=== PATIENT | female | born 1945 | race Caucasian/White ===

== ENCOUNTER 2019-07-04 07:55 | Outpatient (CLI) | payer MEDICARE, BC, SELFPAY ==
--- NOTE | 2019-07-04 08:15 | PC.NURSE ---
Patient here for port flush. Port site to left upper chest cleansed well. Accessed with riley needle, patient tolerated well. Port site flushed well. No blood return received. Patient states that has bee an issues in the past. Site flushed with 10ml of normal saline and 500 Unit Heparin Lock Flush. Port site deaccessed, patient tolerated well. Band aid applied to site. Next appointment made for August 04, 2019 at 0800. Patient denies any questions at discharge, left ambulatory.
== END 2019-07-04 07:56 | disposition home or self-care (01) ==
LOC: CHSTREATRM 07:59
PROVIDERS: PCP Family Medicine
DX: C73 Malignant neoplasm of thyroid gland (principal)
CPT/HCPCS: 96523

== ENCOUNTER 2019-07-12 09:25 | Outpatient (CLI) | payer MEDICARE, SELFPAY ==
[2019-07-12 09:39] LABS: Basophils Absolute Auto 0.06 K/mm3 (0.00-0.10); Basophils Percent Auto 1.2 % (0.0-1.0); Hematocrit 33.4 % (35.0-42.0); Immature Granulocyte Absolute 0.02 K/mm3 (0.00-0.00); Immature Granulocyte Percent A 0.4 % (0.0-0.0); Lymphocytes Absolute Auto 1.45 K/mm3 (1.10-4.50); Lymphocytes Percent Auto 29.2 % (18.0-42.0); Mean Corpuscular HGB Conc 32.9 g/dL (32.0-36.0); Mean Corpuscular Volume 97.1 fL (78.0-102.0); Monocytes Percent Auto 10.1 % (2.0-11.0); Neutrophils Absolute Auto 2.8 K/mm3 (1.7-7.2); Neutrophils Percent Auto 57.1 % (50.0-70.0); Platelet Count Result 197 K/mm3 (150-420); Red Blood Count 3.44 M/mm3 (4.20-5.40); Red Cell Distribution Width 12.7 % (11.6-14.4)
== END 2019-07-12 09:26 | disposition home or self-care (01) ==
PROVIDERS: Visit Provider Family Medicine
DX: R53.83 Other fatigue (principal)
CPT/HCPCS: 36415; 85025

== ENCOUNTER 2019-08-05 08:16 | Outpatient (CLI) | payer MEDICARE, SELFPAY ==
[2019-08-05 10:19] LABS: Albumin Level 3.5 g/dL (3.4-5.0); Anion Gap 13.1 mmol/L (7-16); Blood Urea Nitrogen 14 mg/dL (7-18); Calcium 9.2 mg/dL (8.5-10.1); Carbon Dioxide 29 mmol/L (21-32); Chloride 105 mmol/L (98-108); Estimated Glomerular Filt Rate 49; Glucose 78 mg/dL (70-99); Osmolality Calculated 295 mOsm/kg (285-295); Phosphorus 4.2 mg/dL (2.6-4.7); Potassium 4.1 mmol/L (3.5-5.1); Sodium 143 mmol/L (136-145)
== END 2019-08-05 08:17 | disposition home or self-care (01) ==
LOC: CHSLAB 08:20
PROVIDERS: PCP Obstetrics & Gynecology
DX: M81.0 Age-related osteoporosis without current pathological fracture (principal)
CPT/HCPCS: 36415; 80069

== ENCOUNTER 2019-10-01 08:05 | Outpatient (CLI) | payer MEDICARE, BC, SELFPAY ==
--- NOTE | 2019-10-01 08:50 | PC.NURSE ---
Port accessed left subclavian, Port flushed easily with 10ml NS, 10ml blood with drawn for waste, Labs obtained. Port flushed with 10ml NS and 5ml Heparin lock flush 500 HALFWAY units/5ml.
[2019-10-01 08:58] LABS: Basophils Absolute Auto 0.06 K/mm3 (0.00-0.10); Basophils Percent Auto 1.1 % (0.0-1.0); Eosinophils Absolute Auto 0.11 K/mm3 (0.02-0.50); Hematocrit 31.2 % (35.0-42.0); Hemoglobin 10.3 g/dL (11.7-13.8); Immature Granulocyte Absolute 0.02 K/mm3 (0.00-0.00); Immature Granulocyte Percent A 0.4 % (0.0-0.0); Lymphocytes Absolute Auto 1.49 K/mm3 (1.10-4.50); Lymphocytes Percent Auto 26.6 % (18.0-42.0); Mean Corpuscular Hemoglobin 31.8 pg (27.0-31.0); Mean Corpuscular Volume 96.3 fL (78.0-102.0); Mean Platelet Volume 8.4 fl (9.2-11.8); Monocytes Absolute Auto 0.53 K/mm3 (0.10-0.90); Monocytes Percent Auto 9.4 % (2.0-11.0); Neutrophils Absolute Auto 3.4 K/mm3 (1.7-7.2); Neutrophils Percent Auto 60.5 % (50.0-70.0); Platelet Count Result 219 K/mm3 (150-420); Red Blood Count 3.24 M/mm3 (4.20-5.40); Red Cell Distribution Width 12.5 % (11.6-14.4); White Blood Count 5.6 K/mm3 (4.8-10.8)
[2019-10-01 09:59] LABS: Alanine Aminotransferase 14 U/L (14-59); Albumin Level 3.2 g/dL (3.4-5.0); Alkaline Phosphatase 67 U/L (46-116); Anion Gap 12.9 mmol/L (7-16); Aspartate Amino Transferase 17 U/L (15-37); Bilirubin,Total 0.3 mg/dL (0.00-1.00); Blood Urea Nitrogen 13 mg/dL (7-18); Calcium 8.8 mg/dL (8.5-10.1); Carbon Dioxide 29 mmol/L (21-32); Chloride 104 mmol/L (98-108); Estimated Glomerular Filt Rate 49; Free T4 Free Thyroxine 1.56 ng/dL (0.76-1.46); Glucose 80 mg/dL (70-99); Osmolality Calculated 293 mOsm/kg (285-295); Potassium 3.9 mmol/L (3.5-5.1); Sodium 142 mmol/L (136-145); Thyroid Stimulating Hormone 0.13 uIU/mL (0.36-3.74); Total Protein 6.5 g/dL (6.4-8.2)
[2019-10-04 04:50] LABS: Thyroglobulin 6.3 ng/mL (2.8-40.9); Thyroglobulin Antibodies <1 IU/mL (<=1)
== END 2019-10-01 08:06 | disposition home or self-care (01) ==
PROVIDERS: PCP Family Medicine
DX: C73 Malignant neoplasm of thyroid gland (principal)
CPT/HCPCS: 36415; 80053; 84100; 84432; 84439; 84443; 85025; 86800; 96372

== ENCOUNTER 2019-10-13 10:10 | Outpatient (CLI) | payer MEDICARE, BC, SELFPAY | END 2019-10-13 10:11 | disposition home or self-care (01) | PROVIDERS: Visit Provider Dentist | DX: Z01.818 Encounter for other preprocedural examination (principal); Z11.59 Encounter for screening for other viral diseases | CPT/HCPCS: 87635; 93005; C9803; U0003 ==

== ENCOUNTER 2019-10-13 11:24 | Outpatient (CLI) | payer MEDICARE, BC, SELFPAY ==
--- NOTE | 2019-10-13 11:45 | ECG_ITS ---
Measurements Intervals [place] Rate: 65 P: 34 AK: 166 QRS: -52 QRSD: 93 T: 53 QT: 415 QTc: 433 Interpretive Statements SINUS RHYTHM LEFT ANTERIOR FASCICULAR BLOCK VOLTAGE CRITERIA FOR LVH ABNORMAL ECG Electronically Signed On 10-13-2019 11:55:54 CDT by Horace Dominique D.O.
== END 2019-10-13 11:25 | disposition home or self-care (01) ==
LOC: ANHCARD 11:27
PROVIDERS: Visit Provider Anesthesiology
DX: Z01.810 Encounter for preprocedural cardiovascular examination (principal); I10 Essential (primary) hypertension; R94.31 Abnormal electrocardiogram [ECG] [EKG]
CPT/HCPCS: 93005

== ENCOUNTER 2019-10-29 10:22 | Outpatient (CLI) | payer MEDICARE, SELFPAY ==
[2019-10-29 10:40] LABS: Basophils Absolute Auto 0.04 K/mm3 (0.00-0.10); Basophils Percent Auto 0.7 % (0.0-1.0); Eosinophils Absolute Auto 0.13 K/mm3 (0.02-0.50); Eosinophils Percent Auto 2.2 % (1.0-6.0); Hematocrit 30.9 % (35.0-42.0); Hemoglobin 10.5 g/dL (11.7-13.8); Immature Granulocyte Absolute 0.03 K/mm3 (0.00-0.00); Immature Granulocyte Percent A 0.5 % (0.0-0.0); Lymphocytes Absolute Auto 1.44 K/mm3 (1.10-4.50); Lymphocytes Percent Auto 24.4 % (18.0-42.0); Mean Corpuscular Hemoglobin 32.4 pg (27.0-31.0); Mean Corpuscular Volume 95.4 fL (78.0-102.0); Mean Platelet Volume 8.3 fl (9.2-11.8); Monocytes Absolute Auto 0.47 K/mm3 (0.10-0.90); Neutrophils Absolute Auto 3.8 K/mm3 (1.7-7.2); Neutrophils Percent Auto 64.2 % (50.0-70.0); Platelet Count Result 199 K/mm3 (150-420); Red Blood Count 3.24 M/mm3 (4.20-5.40); Red Cell Distribution Width 12.2 % (11.6-14.4); White Blood Count 5.9 K/mm3 (4.8-10.8)
[2019-10-29 11:47] LABS: Alanine Aminotransferase 15 U/L (14-59); Albumin Level 3.4 g/dL (3.4-5.0); Alkaline Phosphatase 59 U/L (46-116); Anion Gap 11.7 mmol/L (7-16); Aspartate Amino Transferase 14 U/L (15-37); Bilirubin,Total 0.3 mg/dL (0.00-1.00); Blood Urea Nitrogen 14 mg/dL (7-18); Carbon Dioxide 31 mmol/L (21-32); Chloride 102 mmol/L (98-108); Estimated Glomerular Filt Rate 34; Free T4 Free Thyroxine 1.62 ng/dL (0.76-1.46); Glucose 100 mg/dL (70-99); Osmolality Calculated 292 mOsm/kg (285-295); Phosphorus 3.6 mg/dL (2.6-4.7); Potassium 3.7 mmol/L (3.5-5.1); Sodium 141 mmol/L (136-145); Thyroid Stimulating Hormone 0.11 uIU/mL (0.36-3.74)
[2019-11-01 03:48] LABS: Thyroglobulin 8.3 ng/mL (2.8-40.9); Thyroglobulin Antibodies <1 IU/mL (<=1)
== END 2019-10-29 10:23 | disposition home or self-care (01) ==
DX: C73 Malignant neoplasm of thyroid gland (principal); E89.0 Postprocedural hypothyroidism; E83.51 Hypocalcemia
CPT/HCPCS: 36415; 80053; 84100; 84432; 84439; 84443; 85025; 86800

== ENCOUNTER 2019-11-12 00:26 | Outpatient (CLI) | payer MEDICARE, BC, SELFPAY ==
[2019-11-13 12:36] LABS: SARS-CoV-2 RNA PCR Negative
== END 2019-11-12 00:27 | disposition home or self-care (01) ==
LOC: ANHCOVIDDT 00:26
PROVIDERS: Visit Provider Dentist
DX: Z20.828 Contact with and (suspected) exposure to other viral communicable diseases (principal); Z01.812 Encounter for preprocedural laboratory examination
CPT/HCPCS: 87635; C9803; U0003

== ENCOUNTER 2019-11-17 00:13 | Outpatient (CLI) | payer MEDICARE, BC, SELFPAY ==
[2019-11-17 17:13] LABS: SARS-CoV-2 RNA PCR Negative
== END 2019-11-17 00:14 | disposition home or self-care (01) ==
LOC: ANHCOVIDDT 00:13
PROVIDERS: Visit Provider Dentist
DX: Z01.812 Encounter for preprocedural laboratory examination (principal); Z11.59 Encounter for screening for other viral diseases
CPT/HCPCS: 87635; C9803; U0003

== ENCOUNTER 2019-11-19 01:41 | Day surgery (SDC) | payer MEDICARE, BC, SELFPAY ==
[2019-10-08 15:50] VITALS: BMI 21.9
--- NOTE | 2019-11-07 13:48 | PC.NURSE ---
PT.STATES NO CHANGE IN HEALTH HX OR MEDICATIONS
--- NOTE | 2019-11-07 13:54 | PC.NURSE ---
PT.STATES NO CHANGE IN HISTORY
[2019-11-14 12:00] VITALS: BMI 21.9
[2019-11-19] VITALS (9 sets, daily range): BP systolic 142–167; BP diastolic 69–92; PULSE 65–83; RESP 16–19; TEMP 36.2–36.4; O2SAT 95–100; BMI 23.5
--- NOTE | 2019-11-19 07:24 | PM.IMHP ---
H&P: HPI History of Present Illness Chief complaint: Dental Carries/ Exostosis Narrative: Promise Medeiros is a 74 year old female nonrestorable dentition and donavon PMFSH Past Medical History Medical History (Updated 11/19/19 @ 07:24 by Trey Calvillo, GERALD) Anemia CVA (cerebral vascular accident) mild - 2017 - no residual Depression Glaucoma History of thyroid cancer Hyperlipidemia Hypertension Surgical History Surgical History (Updated 11/12/19 @ 12:45 by Clemente Barnes, ) History of thyroidectomy Meds Home Medications and Allergies Home Medications Medication Instructions Recorded Confirmed Type Vitamin D2 50,000 unit WEEKLY 10/08/19 11/14/19 History aspirin [Aspir-81] 81 mg PO DAILY 10/08/19 11/14/19 History atorvastatin 10 mg PO HS 10/08/19 11/14/19 History buspirone 5 mg PO BID 10/08/19 11/14/19 History calcitriol 0.25 mcg PO DAILY 10/08/19 11/14/19 History calcium citrate-vitamin D3 2 tablet PO HS 10/08/19 11/14/19 History [Citracal Regular] cyanocobalamin (vitamin B-12) 1,000 mcg PO DAILY 10/08/19 11/14/19 History dorzolamide-timolol 1 drp OPHTHALMIC (EYE) BID 10/08/19 11/14/19 History escitalopram oxalate 10 mg PO HS 10/08/19 11/14/19 History escitalopram oxalate 20 mg PO DAILY 10/08/19 11/14/19 History ferrous sulfate [iron] 325 mg PO DAILY 10/08/19 11/14/19 History levothyroxine [Synthroid] 100 mcg PO DAILY 10/08/19 11/14/19 History oxybutynin chloride 10 mg PO DAILY 10/08/19 11/14/19 History risperidone 1.5 mg PO BID 10/08/19 11/14/19 History travoprost [Travatan Z] 1 drp OPHTHALMIC (EYE) QPM 10/08/19 11/14/19 History Allergies Allergy/AdvReac Type Severity Reaction Status Date / Time morphine AdvReac Difficulty Verified 11/14/19 11:59 Breathing Assessment and Plan Assessment and plan (1) Non-restorable tooth: Code(s): K08.89 - Other specified disorders of teeth and supporting structures Status: Acute Assessment and Plan: Mckenzie raphael
--- NOTE | 2019-11-19 07:42 | SUR.PREOP ---
9614; DR LOUIS NOTIFIED THAT PT IS GOING TO BE LATE. PT WAS CALLED
--- NOTE | 2019-11-19 07:56 | WPDANESEPPF ---
Anes - Initial Pre Proc Eval Procedure: Operation Date: 11/19/19 08:30 Proposed Procedures p Extraction Of Fourteen Teeth, Removal Bilateral Mandibular Ayah - Trey Calvillo DMD Date/Time: 11/19/19 07:56 Surgeon: Trey Calvillo DMD Pre Op Diagnosis: Dental Carries/ Exostosis Patient Data Age: 74 Gender: F Height: 1.57 m Weight: 54.5 kg Allergies Allergy/AdvReac Type Severity Reaction Status Date / Time morphine AdvReac Difficulty Verified 11/14/19 11:59 Breathing Home Medications Medication Instructions Recorded Confirmed Type Vitamin D2 50,000 unit WEEKLY 10/08/19 11/14/19 History aspirin [Aspir-81] 81 mg PO DAILY 10/08/19 11/14/19 History atorvastatin 10 mg PO HS 10/08/19 11/14/19 History buspirone 5 mg PO BID 10/08/19 11/14/19 History calcitriol 0.25 mcg PO DAILY 10/08/19 11/14/19 History calcium citrate-vitamin D3 2 tablet PO HS 10/08/19 11/14/19 History [Citracal Regular] cyanocobalamin (vitamin B-12) 1,000 mcg PO DAILY 10/08/19 11/14/19 History dorzolamide-timolol 1 drp OPHTHALMIC (EYE) BID 10/08/19 11/14/19 History escitalopram oxalate 10 mg PO HS 10/08/19 11/14/19 History escitalopram oxalate 20 mg PO DAILY 10/08/19 11/14/19 History ferrous sulfate [iron] 325 mg PO DAILY 10/08/19 11/14/19 History levothyroxine [Synthroid] 100 mcg PO DAILY 10/08/19 11/14/19 History oxybutynin chloride 10 mg PO DAILY 10/08/19 11/14/19 History risperidone 1.5 mg PO BID 10/08/19 11/14/19 History travoprost [Travatan Z] 1 drp OPHTHALMIC (EYE) QPM 10/08/19 11/14/19 History ECG: Date of Service: 10/13/19 Procedure(s): CA 12 lead EKG Accession Number(s): [id number] cc: ~ Measurements Intervals [place] Rate: 65 P: 34 DE: 166 QRS: -52 QRSD: 93 T: 53 QT: 415 QTc: 433 Interpretive Statements SINUS RHYTHM LEFT ANTERIOR FASCICULAR BLOCK VOLTAGE CRITERIA FOR LVH ABNORMAL ECG Electronically Signed On 10-13-2019 11:55:54 CDT by Horace Dominique D.O. Dictated By: Horace Dominique DO 10/13/19 1152 Patient hx anesthesia problems: none Family hx anesthesia problems: none PMFSH Past Medical History Medical History (Updated 11/19/19 @ 07:58 by Romero Nolasco MD) Anemia CVA (cerebral vascular accident) mild - 2017 - no residual Depression Glaucoma History of thyroid cancer Hyperlipidemia Hypertension Hypothyroidism Surgical History Surgical History (Updated 11/12/19 @ 12:45 by Clemente Barnes DO) History of thyroidectomy Anes - Eval Final PreProcedure Day of Procedure 11/19/19 07:56 Patient weight: normal Heart: regular rate and rhythm Lungs: clear to auscultation and normal air movement Airway: Mallampati scale class II Neurological: alert and oriented Last oral intake: >/= 8 hours ASA classification: III Emergent: no Anesthetic plan: proceed Anesthesia type and monitoring: general ETT Informed Consent: The patient's anesthetic plan and its attendant risks and benefits were discussed with the patient/family/POA. Questions were solicited and answers provided to the satisfaction of the patient/family/POA.
--- NOTE | 2019-11-19 08:42 | SUR.PREOP ---
0830; UNABLE TO START SUCCESSFUL IV. BRIANA THE EMAIL OPERATIONS MANAGER STUDENT ATTEMPTED ALSO. DR JOLLEY NOTIFIED. HE WILL ATTEMPT AN IV. OK TO ACCESS PORTACATH.
[2019-11-19] MEDS: LACTATED RINGERS 1,000 ML 30 ML IV CONT (09:07)
--- NOTE | 2019-11-19 09:09 | SUR.PREOP ---
MESSAGE LEFT FOR SONJEISON, THAT PT WENT TO OR AT 0905
[2019-11-19] MEDS: LIDOCAINE 2%-EPI (FOR DENTAL BLOCK) 1.7 ML CARTRIDGE 4 ML INFILTRATE (09:23)
--- NOTE | 2019-11-19 10:09 | PM.PROC ---
Procedure Note - Detailed Date of procedure: 11/19/19 Pre-op diagnosis: Dental Carries/ Exostosis Surgeon: Trey Calvillo DMD patient was encountered in the operating room under the care of the anesthesia service who induced a general anesthetic. Patient was draped in the usual manner for an intraoral surgical procedure. Oral cavity was suctioned free of debris and throat pack was placed. Local anesthetic administered. Fifteen blade was used to make a sulcular incision in the area of the remaining maxillary teeth. Teeth numbers 678 and 9 were then extracted using elevator and forceps technique without complication. A alveoloplasty was completed. sockets curetted free of debris and irrigated and then closed using 4 O chromic gut suture in continuous fashion. Attention was turned to the mandible where a sulculra and crestal incision was made with distal releasing incisions. Full-thickness flap was elevated to the buccal and lingual. Remaining teeth removed using elevator and forceps technique without complication. Alveoloplasty was completed using rongeur. Mandibular donavon removed using the drill. Wound was thoroughly irrigated and then closed using chromic gut suture in continuous and interrupted fashion. Oral cavity was suctioned free of debris and throat pack was removed. Dentures were inserted and gauze packs were placed. Care the patient was returned to the anesthesia service who extubated the patient transferred to recovery in stable condition. The mandibular teeth extracted were teeth #[id number] and 31.
== END 2019-11-19 12:55 | disposition home or self-care (01) ==
PROVIDERS: PCP Family Medicine; Visit Provider Dentist
PROC: (CPT 21031; principal; 2019-11-19 08:30)
DX: M27.0 Developmental disorders of jaws (principal); K02.9 Dental caries, unspecified; I10 Essential (primary) hypertension; E78.5 Hyperlipidemia, unspecified; E89.0 Postprocedural hypothyroidism; H40.9 Unspecified glaucoma; D64.9 Anemia, unspecified; Z85.850 Personal history of malignant neoplasm of thyroid; Z86.73 Personal history of transient ischemic attack (TIA), and cerebral infarction without residual deficits; Z79.82 Long term (current) use of aspirin
CPT/HCPCS: 21031; D7140 ×14; A9270; J0330; J1100; J1642; J2405; J2704; J3010; J7120

== ENCOUNTER 2020-01-29 11:00 | Outpatient (CLI) | payer MEDICARE, BC, SELFPAY ==
--- NOTE | ~2020-01-29 | MMUS_ITS ---
EXAMINATION: MM diagnostic radha LT w tri, US breast LT complete HISTORY: Left breast pain TECHNIQUE: Additional 3-D tomosynthesis images of the left breast were performed and synthetic 2-D im ages were generated. CAD analysis was submitted and interpreted. High resolution left breast ultrasou nd was performed. COMPARISON: 07/09/2012 BREAST PARENCHYMAL COMPOSITION: The breasts are heterogenously dense, which may obscure small masses. FINDINGS: MAMMOGRAPHIC FINDINGS: There are no suspicious masses, calcifications or architectural distortion in the left breast to sugg est malignancy. ULTRASOUND: Left breast ultrasound: There are multiple cysts of the left breast, largest measuring 6 mm at 4:00, 1 cm from the nipple. No suspicious masses to suggest malignancy. IMPRESSION: 1. No evidence for malignancy in the left breast. 2. Routine yearly screening mammogram and regular clinical breast examination are recommended. BI-RADS Category 2: Benign finding(s). Reviewed, dictated and finalized at location A. IMPRESSION: 1. No evidence for malignancy in the left breast. 2. Routine yearly screening mammogram and regular clinical breast examination a re recommended. BI-RADS Category 2: Benign finding(s).
== END 2020-01-29 11:01 | disposition home or self-care (01) ==
PROVIDERS: Visit Provider Internal Medicine Hematology & Oncology
DX: N63.20 Unspecified lump in the left breast, unspecified quadrant (principal); N64.4 Mastodynia
CPT/HCPCS: 76641; 77061; 77065; G0279

== ENCOUNTER 2020-02-07 01:07 | Outpatient (CLI) | payer MEDICARE, BC, SELFPAY ==
[2020-02-07 18:02] LABS: SARS-CoV-2 RNA PCR Negative
== END 2020-02-07 01:08 | disposition home or self-care (01) ==
LOC: ANHCOVIDDT 01:07
PROVIDERS: Visit Provider Internal Medicine Hematology & Oncology
DX: Z01.812 Encounter for preprocedural laboratory examination (principal); Z20.828 Contact with and (suspected) exposure to other viral communicable diseases
CPT/HCPCS: 87635; C9803; U0003

== ENCOUNTER 2020-02-10 02:01 | Day surgery (SDC) | payer MEDICARE, BC, SELFPAY ==
--- NOTE | ~2020-02-10 | BM_ITS ---
EXAMINATION: CCL bone marrow asp w bx diag ORDER COMPLETED DATE: 02/10/2020 09:13 INDICATION: Anemia TECHNIQUE: A time-out was performed to verify the patient's name, date of , and procedure to b e performed. The procedure including the risks, benefits, and alternatives was discussed with the pat ient. Risks discussed included bleeding and infection. The patient understood the risks and agreed to proceed. The skin overlying the right posterior iliac spine was prepped and draped in usual sterile fashion. Anesthetic was administered with 1% lidocaine subcutaneously. Systemic analgesia was provide d with 100 mcg fentanyl IV. An 11 gauge needle was inserted into the ilium with fluoroscopic guidance . Bone marrow was aspirated. An 8 gauge needle was then inserted into the ilium with fluoroscopic armiro dance. A core bone marrow biopsy was obtained. There were no immediate complications. Fluoroscopy exp osure time was 0.1 minutes. The total number of images was 44. FINDINGS: Real-time fluoroscopy demonstrates a marker overlying the right posterior iliac spine. IMPRESSION: 1. Successful fluoro-guided bone marrow aspiration. 2. Successful fluoro-guided bone marrow core biopsy. Reviewed, dictated and finalized at location A.
[2020-02-10 08:00] VITALS: BMI 23.8
[2020-02-10 08:07] VITALS: BP 143/84; PULSE 72; RESP 22; TEMP 37; O2SAT 99
[2020-02-10 08:09] LABS: Basophils Absolute Auto 0.1 K/mm3 (0.0-0.1); Basophils Percent Auto 1.3 % (0.2-1.2); Eosinophils Absolute Auto 0.2 K/mm3 (0-0.3); Eosinophils Percent Auto 3.1 % (0-4.4); Hematocrit 31.6 % (37.0-47.0); Hemoglobin 10.4 g/dL (12.0-15.0); Immature Granulocyte Absolute 0.01 K/mm3 (0.00-0.031); Immature Granulocyte Percent A 0.2 % (0-0.5); Lymphocytes Absolute Auto 1.58 K/mm3 (0.9-3.2); Lymphocytes Percent Auto 32.9 % (18.3-44.2); Mean Corpuscular HGB Conc 32.9 g/dl (32-36); Mean Corpuscular Hemoglobin 32.3 pg (26-34); Mean Corpuscular Volume 98.1 fl (80-100); Monocytes Absolute Auto 0.5 K/mm3 (0.1-0.6); Monocytes Percent Auto 10.6 % (2.6-8.5); Neutrophils Absolute Auto 2.5 K/mm3 (1.3-6.7); Neutrophils Percent Auto 51.9 % (45.5-73.1); Platelet Count Result 281 k/mm3 (150-375); Red Blood Count 3.22 M/mm3 (4.2-5.4); Red Cell Distribution Width 12.8 % (11.5-14.5); White Blood Count 4.8 K/mm3 (4.5-10.0)
[2020-02-10 08:18] LABS: INR 1.1; Prothrombin Time 13.5 Seconds (11.1-14.7)
[2020-02-10 09:15] VITALS: BP 128/83; PULSE 55; TEMP 36.5; O2SAT 96
[2020-02-10 09:30] VITALS: BP 137/59; PULSE 58; RESP 22; O2SAT 97
[2020-02-10 09:45] VITALS: BP 140/71; PULSE 56; RESP 20; O2SAT 97
--- NOTE | 2020-02-10 10:28 | SUR.PHASEII ---
1015 d/c instructions reviewed with patient, verbalized understanding, iv d/c'd cath intact pressure applied;pt transported to main entrance via where her DIL Brooklynn drove her home in a private vehicle.
== END 2020-02-10 10:30 | disposition home or self-care (01) ==
PROVIDERS: Radiology Diagnostic Radiology; Visit Provider Internal Medicine Hematology & Oncology
DX: D64.9 Anemia, unspecified (principal); R53.83 Other fatigue; Z85.3 Personal history of malignant neoplasm of breast; Z85.850 Personal history of malignant neoplasm of thyroid
CPT/HCPCS: 36415; 38222; 85025; 85610; 88184; 88185; 88305; 88311; 88313; 88342; 88360; J1644; J2250; J3010; J7040

== ENCOUNTER 2020-10-22 13:12 | Outpatient (CLI) | payer MEDICARE, BC, SELFPAY ==
[2020-10-22 14:26] LABS: Basophils Absolute Auto 0.1 K/mm3 (0.0-0.1); Basophils Percent Auto 1.1 % (0.2-1.2); Eosinophils Absolute Auto 0.1 K/mm3 (0-0.3); Eosinophils Percent Auto 2.4 % (0-4.4); Hematocrit 31.5 % (37.0-47.0); Hemoglobin 10.3 g/dL (12.0-15.0); Immature Granulocyte Absolute 0.01 K/mm3 (0.00-0.031); Immature Granulocyte Percent A 0.2 % (0-0.5); Lymphocytes Absolute Auto 1.28 K/mm3 (0.9-3.2); Lymphocytes Percent Auto 28.3 % (18.3-44.2); Mean Corpuscular HGB Conc 32.7 g/dl (32-36); Mean Corpuscular Hemoglobin 31.8 pg (26-34); Mean Corpuscular Volume 97.2 fl (80-100); Mean Platelet Volume 8.7 fl (7.4-10.4); Monocytes Absolute Auto 0.5 K/mm3 (0.1-0.6); Monocytes Percent Auto 11.9 % (2.6-8.5); Neutrophils Absolute Auto 2.5 K/mm3 (1.3-6.7); Neutrophils Percent Auto 56.1 % (45.5-73.1); Platelet Count Result 172 k/mm3 (150-375); Red Blood Count 3.24 M/mm3 (4.2-5.4); Red Cell Distribution Width 13.3 % (11.5-14.5); White Blood Count 4.5 K/mm3 (4.5-10.0)
[2020-10-22 15:04] LABS: Alanine Aminotransferase 21 U/L (4-35); Albumin Level 3.9 g/dL (3.5-5.1); Alkaline Phosphatase 60 U/L (38-126); Anion Gap 6 mmol/L (8-16); Aspartate Amino Transferase 30 U/L (14-36); Bilirubin,Total 0.3 mg/dL (0.2-1.3); Blood Urea Nitrogen 24 mg/dL (7-17); Calcium 9.1 mg/dL (8.4-10.2); Carbon Dioxide 33 mmol/L (22-30); Chloride 99 mmol/L (98-107); Estimated Glomerular Filt Rate > 60; Glucose 83 mg/dL (65-105); Potassium 4.1 mmol/L (3.4-5.0); Sodium 138 mmol/L (137-145)
[2020-10-22 15:21] LABS: Free T4 Free Thyroxine 1.13 ng/mL (0.78-2.19)
[2020-10-25 05:19] LABS: Thyroglobulin 108.5 ng/mL (2.8-40.9); Thyroglobulin Antibodies <1 IU/mL (<=1)
== END 2020-10-22 13:13 | disposition home or self-care (01) ==
LOC: ANHLAB 13:14
DX: C73 Malignant neoplasm of thyroid gland (principal)
CPT/HCPCS: 36415; 80053; 84432; 84439; 84443; 85025; 86800

== ENCOUNTER 2020-12-16 08:29 | Outpatient (CLI) | payer MEDICARE, BC, SELFPAY ==
[2020-12-16 08:58] LABS: Basophils Absolute Auto 0.1 K/mm3 (0.0-0.1); Eosinophils Absolute Auto 0.2 K/mm3 (0-0.3); Eosinophils Percent Auto 3.7 % (0-4.4); Hematocrit 33.9 % (37.0-47.0); Immature Granulocyte Absolute 0.01 K/mm3 (0.00-0.031); Immature Granulocyte Percent A 0.2 % (0-0.5); Lymphocytes Absolute Auto 1.41 K/mm3 (0.9-3.2); Lymphocytes Percent Auto 29.3 % (18.3-44.2); Mean Corpuscular HGB Conc 32.4 g/dl (32-36); Mean Corpuscular Hemoglobin 31.8 pg (26-34); Monocytes Absolute Auto 0.4 K/mm3 (0.1-0.6); Monocytes Percent Auto 8.9 % (2.6-8.5); Neutrophils Absolute Auto 2.7 K/mm3 (1.3-6.7); Neutrophils Percent Auto 56.9 % (45.5-73.1); Platelet Count Result 203 k/mm3 (150-375); Red Blood Count 3.46 M/mm3 (4.2-5.4); White Blood Count 4.8 K/mm3 (4.5-10.0)
[2020-12-16 13:29] LABS: Alanine Aminotransferase 22 U/L (4-35); Albumin Level 4.2 g/dL (3.5-5.1); Alkaline Phosphatase 77 U/L (38-126); Anion Gap 11 mmol/L (8-16); Aspartate Amino Transferase 27 U/L (14-36); Bilirubin,Total 0.3 mg/dL (0.2-1.3); Blood Urea Nitrogen 30 mg/dL (7-17); Calcium 10.3 mg/dL (8.4-10.2); Carbon Dioxide 29 mmol/L (22-30); Chloride 102 mmol/L (98-107); Estimated Glomerular Filt Rate 49; Glucose 93 mg/dL (65-110); Phosphorus 4.3 mg/dL (2.5-4.5); Potassium 3.7 mmol/L (3.4-5.0); Sodium 142 mmol/L (137-145)
[2020-12-16 13:39] LABS: Free T4 Free Thyroxine 1.76 ng/mL (0.78-2.19)
[2020-12-19 04:15] LABS: Thyroglobulin 57.2 ng/mL (2.8-40.9); Thyroglobulin Antibodies <1 IU/mL (<=1)
== END 2020-12-16 08:30 | disposition home or self-care (01) ==
LOC: ANHLAB 08:38
PROVIDERS: Visit Provider Internal Medicine Hematology & Oncology
DX: C73 Malignant neoplasm of thyroid gland (principal); M81.8 Other osteoporosis without current pathological fracture; E89.0 Postprocedural hypothyroidism
CPT/HCPCS: 36415; 80053; 84100; 84432; 84439; 84443; 85025; 86800; 96523

== ENCOUNTER 2021-02-17 10:42 | Outpatient (CLI) | payer MEDICARE, BC, SELFPAY ==
[2021-02-17 10:56] LABS: Basophils Percent Auto 0.9 % (0.2-1.2); Eosinophils Absolute Auto 0.1 K/mm3 (0-0.3); Hematocrit 32.9 % (37.0-47.0); Hemoglobin 10.6 g/dL (12.0-15.0); Immature Granulocyte Absolute 0.01 K/mm3 (0.00-0.031); Immature Granulocyte Percent A 0.2 % (0-0.5); Lymphocytes Absolute Auto 1.22 K/mm3 (0.9-3.2); Lymphocytes Percent Auto 26.1 % (18.3-44.2); Mean Corpuscular HGB Conc 32.2 g/dl (32-36); Mean Corpuscular Hemoglobin 31.5 pg (26-34); Mean Corpuscular Volume 97.6 fl (80-100); Mean Platelet Volume 9.4 fl (7.4-10.4); Monocytes Absolute Auto 0.5 K/mm3 (0.1-0.6); Monocytes Percent Auto 10.7 % (2.6-8.5); Neutrophils Absolute Auto 2.8 K/mm3 (1.3-6.7); Neutrophils Percent Auto 59.1 % (45.5-73.1); Platelet Count Result 204 k/mm3 (150-375); Red Blood Count 3.37 M/mm3 (4.2-5.4); Red Cell Distribution Width 12.3 % (11.5-14.5); White Blood Count 4.7 K/mm3 (4.5-10.0)
[2021-02-17 13:21] LABS: Alanine Aminotransferase 26 U/L (4-35); Albumin Level 4.4 g/dL (3.5-5.1); Alkaline Phosphatase 65 U/L (38-126); Anion Gap 5 mmol/L (8-16); Aspartate Amino Transferase 60 U/L (14-36); Bilirubin,Total 0.2 mg/dL (0.2-1.3); Blood Urea Nitrogen 26 mg/dL (7-17); Calcium 9.6 mg/dL (8.4-10.2); Carbon Dioxide 30 mmol/L (22-30); Chloride 106 mmol/L (98-107); Estimated Glomerular Filt Rate 48; Glucose 82 mg/dL (65-110); Phosphorus 4.4 mg/dL (2.5-4.5); Potassium 3.8 mmol/L (3.4-5.0); Sodium 141 mmol/L (137-145)
[2021-02-17 13:41] LABS: Free T4 Free Thyroxine 1.52 ng/mL (0.78-2.19)
[2021-02-17 14:25] LABS: Vitamin B12 > 1000.0 pg/mL (239-931)
[2021-02-20 04:11] LABS: Thyroglobulin Antibodies <1 IU/mL (<=1)
== END 2021-02-17 10:43 | disposition home or self-care (01) ==
LOC: ANHLAB 10:47
PROVIDERS: Visit Provider Internal Medicine Hematology & Oncology
DX: M81.8 Other osteoporosis without current pathological fracture (principal); E89.0 Postprocedural hypothyroidism
CPT/HCPCS: 36415; 80053; 82607; 84100; 84432; 84439; 84443; 85025; 86800

== ENCOUNTER 2021-03-22 12:58 | Outpatient (CLI) | payer MEDICARE, BC, SELFPAY ==
[2021-03-22 13:42] LABS: Basophils Percent Auto 0.9 % (0.2-1.2); Eosinophils Absolute Auto 0.1 K/mm3 (0-0.3); Eosinophils Percent Auto 3.3 % (0-4.4); Hematocrit 31.5 % (37.0-47.0); Hemoglobin 10.1 g/dL (12.0-15.0); Immature Granulocyte Absolute 0.01 K/mm3 (0.00-0.031); Immature Granulocyte Percent A 0.2 % (0-0.5); Lymphocytes Absolute Auto 1.16 K/mm3 (0.9-3.2); Lymphocytes Percent Auto 27.3 % (18.3-44.2); Mean Corpuscular HGB Conc 32.1 g/dl (32-36); Mean Corpuscular Hemoglobin 31.4 pg (26-34); Mean Corpuscular Volume 97.8 fl (80-100); Mean Platelet Volume 8.9 fl (7.4-10.4); Monocytes Absolute Auto 0.5 K/mm3 (0.1-0.6); Monocytes Percent Auto 11.3 % (2.6-8.5); Neutrophils Absolute Auto 2.4 K/mm3 (1.3-6.7); Platelet Count Result 194 k/mm3 (150-375); Red Blood Count 3.22 M/mm3 (4.2-5.4); Red Cell Distribution Width 12.6 % (11.5-14.5); White Blood Count 4.3 K/mm3 (4.5-10.0)
[2021-03-22 16:26] LABS: Alanine Aminotransferase 31 U/L (4-35); Albumin Level 3.8 g/dL (3.5-5.1); Alkaline Phosphatase 65 U/L (38-126); Anion Gap 7 mmol/L (8-16); Aspartate Amino Transferase 42 U/L (14-36); Bilirubin,Total 0.3 mg/dL (0.2-1.3); Blood Urea Nitrogen 24 mg/dL (7-17); Calcium 9.4 mg/dL (8.4-10.2); Carbon Dioxide 29 mmol/L (22-30); Chloride 105 mmol/L (98-107); Estimated Glomerular Filt Rate 54; Glucose 110 mg/dL (65-110); Potassium 3.7 mmol/L (3.4-5.0); Sodium 141 mmol/L (137-145)
[2021-03-22 16:45] LABS: Free T4 Free Thyroxine 2.26 ng/mL (0.78-2.19)
[2021-03-22 16:46] LABS: Vitamin D 25 Hydroxy > 126.0 ng/mL
[2021-03-22 16:56] LABS: Thyroid Stimulating Hormone 0.308 uIU/mL (0.465-4.680)
[2021-03-25 04:50] LABS: Thyroglobulin 36.1 ng/mL (2.8-40.9); Thyroglobulin Antibodies <1 IU/mL (<=1)
== END 2021-03-22 12:59 | disposition home or self-care (01) ==
LOC: ANHLAB 13:01
DX: C73 Malignant neoplasm of thyroid gland (principal); E55.9 Vitamin D deficiency, unspecified
CPT/HCPCS: 36415; 80053; 82306; 84432; 84439; 84443; 85025; 86800